=== PATIENT | female | born 1990 | race African-American/Black ===

== ENCOUNTER 2019-06-21 18:42 | Emergency (ER) | payer SELFPAY ==
[~2019-06-21] VITALS: Ht 157.5 cm; Wt 57.0 kg
[2019-06-21] MEDS ORDERED: DIPHENHYDRAMINE 50MG CAPSULE PO ONE (23:30)
[2019-06-21] MEDS ORDERED: PREDNISONE 20MG TABLET PO ONE (23:30)
[2019-06-21 23:51] VITALS: BP 106/48
== END 2019-06-21 23:52 | disposition home or self-care (01) ==
LOC: ER 18:42
DX: S50.361A Insect bite (nonvenomous) of right elbow, initial encounter (principal); F12.10 Cannabis abuse, uncomplicated; W57.XXXA Bitten or stung by nonvenomous insect and other nonvenomous arthropods, initial encounter; Y93.89 Activity, other specified; Y92.018 Other place in single-family (private) house as the place of occurrence of the external cause
CPT/HCPCS: 99283; J7512; Q0163